=== PATIENT | male | born 1975 | race Hispanic/Latino ===

== ENCOUNTER 2021-09-09 07:53 | Emergency (ER) | payer MEDICAID ==
[~2021-09-09] VITALS: Ht 162.6 cm; Wt 90.7 kg
[2021-09-09 07:55] VITALS: BP 124/94
[2021-09-09 08:29] LABS: BASOPHILS % (AUTO) 0.2 % (0.0-5.0); EOSINOPHILS % (AUTO) 0.6 % (0.0-8.0); HEMATOCRIT 45.7 % (42-54); LYMPHOCYTES % (AUTO) 11.2 % (21.0-51.0); MEAN CORPUSCULAR HEMOGLOBIN 27.6 pg (27.0-33.0); MEAN CORPUSCULAR HGB CONC 33.3 g/dL (32.0-36.0); MEAN CORPUSCULAR VOLUME 83.1 fL (79-99); MONOCYTES % (AUTO) 7.2 % (3.0-13.0); NEUTROPHILS % (AUTO) 80.5 % (40.0-77.0); PLATELET COUNT (AUTO) 270 K/uL (130-400); RED CELL DISTRIBUTION WIDTH 12.2 % (11.0-15.5)
[2021-09-09] MEDS ORDERED: KETOROLAC 15MG/ML VIAL (15MG/ML) IV SCH (08:30)
[2021-09-09 08:46] LABS: ALBUMIN 4.3 g/dL (3.5-5.0); CREATININE 0.9 mg/dL (0.5-1.5); TOTAL PROTEIN, SERUM 8.4 g/dL (6.0-8.3)
[2021-09-09] MEDS ORDERED: DICY10 PO (09:28)
== END 2021-09-09 10:30 | disposition home or self-care (01) ==
LOC: EDH 07:53 → EDSEX 07:53 → EDH 10:30
DX: R10.84 Generalized abdominal pain (principal); R10.33 Periumbilical pain; R19.7 Diarrhea, unspecified; I10 Essential (primary) hypertension; F41.9 Anxiety disorder, unspecified; Z79.1 Long term (current) use of non-steroidal anti-inflammatories (NSAID); Z90.49 Acquired absence of other specified parts of digestive tract
CPT/HCPCS: 36415; 80053; 83690; 85025